=== PATIENT | male | born 1990 | race African-American/Black ===

== ENCOUNTER 2018-08-19 13:22 | Emergency (ER) | payer MEDICAID ==
[~2018-08-19] VITALS: Ht 188 cm; Wt 88.0 kg
[2018-08-19] MEDS ORDERED: IBUPROFEN 600MG TABLET PO ONE (13:45)
[2018-08-19 13:54] VITALS: BP 136/72
== END 2018-08-19 13:55 | disposition home or self-care (01) ==
LOC: ER 13:22
DX: S16.1XXA Strain of muscle, fascia and tendon at neck level, initial encounter (principal); S39.012A Strain of muscle, fascia and tendon of lower back, initial encounter; V43.52XA Car driver injured in collision with other type car in traffic accident, initial encounter; Y93.89 Activity, other specified; Y92.411 Interstate highway as the place of occurrence of the external cause
CPT/HCPCS: 99283